=== PATIENT | male | born 1985 | race Caucasian/White ===

== ENCOUNTER 2024-01-18 18:23 | Inpatient (IN) | payer OTHER, SELFPAY ==
--- NOTE | ~2024-01-18 | XR_ITS ---
EXAMINATION: XR chest 2V CLINICAL INFORMATION: cough, SOB COMPARISON: None. TECHNIQUE: 2 views of the chest FINDINGS: Right lung base hazy opacity may reflect aspiration, atelectasis, or infection. No pneumothorax. No pleural effusion. Unchanged cardiomediastinal silhouette. XR/XR chest 2V IMPRESSION: Right lung base hazy opacity may reflect aspiration, atelectasis, or infection. Electronically signed by: Mavis Basurto MD 01/18/2024 08:07 PM EDT
[2024-01-18 18:46] VITALS: BP 109/50; PULSE 112; RESP 20; TEMP 37.9; O2SAT 93; BMI 37.6
[2024-01-18] MEDS: Acetaminophen 325 MG TABLET 650 MG PO (19:11)
[2024-01-18 19:59] LABS: Hematocrit 40.6 % (42.0-52.0); Hemoglobin 14.2 g/dl (14.0-18.0); Mean Corpuscular Hemoglobin 29.7 pg (27.0-33.0); Mean Corpuscular Volume 84.9 fL (80.0-98.0); Mean Platelet Volume 10.3 fL (9.4-12.4); Platelet Count 306 X10*3/uL (160-400); Red Blood Count 4.78 X10*6/uL (4.60-5.80); Red Cell Distribution Width 12.4 % (11.0-16.0)
[2024-01-18 20:07] LABS: WBC ABN SCTR FOR CBC 1
[2024-01-18 20:08] LABS: White Blood Count 20.2 X10*3/uL (4.8-10.8)
[2024-01-18 20:13] LABS: Alanine Aminotransferase 30 U/L (0-40); Albumin Level 3.6 g/dL (3.5-5.0); Alkaline Phosphatase 71 U/L (39-117); Anion Gap 17 (12-20); Aspartate Amino Transferase 80 U/L (5-37); Bilirubin Direct 0.4 mg/dL (0.0-0.5); Bilirubin Total 0.8 mg/dL (0.0-1.0); Blood Urea Nitrogen 17 mg/dL (9-16); Calcium 9.7 mg/dL (8.4-10.2); Carbon Dioxide 18 mmol/L (22-29); Chloride 100 mmol/L (96-108); Creatinine Clr Calc Pharmacy 80.8; Estimated Glomerular Filt Rate 55; Glucose Random 118 mg/dL (60-115); Lipase 19 U/L (8-78); Potassium 3.8 mmol/L (3.3-5.1); Sodium 131 mmol/L (135-145); Total Protein 7.5 g/dL (6.5-8.0)
--- NOTE | 2024-01-18 20:17 | ED_ITS ---
HPI - General Adult General Chief complaint: Upper Respiratory Symptoms Stated complaint: Fever, coughing Time Seen by Provider: 01/18/24 21:46 Source: patient Mode of arrival: ambulatory Limitations: no limitations History of Present Illness HPI narrative: Patient is a 38-year-old male presents emergency department for evaluation of 5 days with intermittent fever, body aches, productive cough with yellow/green phlegm, pain diffusely throughout the chest during episodes of coughing, intermittent headache without neck pain or neck stiffness, and diffuse upper abdominal pain no nausea or vomiting. Denies any known sick contacts, symptoms, diarrhea or constipation. Related Data Allergies Allergy/AdvReac Type Severity Reaction Status Date / Time No Known Allergies Allergy Verified 01/18/24 18:49 [facility] Social History Social History Household Members: Family Housing: House Alcohol intake: current Alcohol intake frequency: holidays/special occasions only Alcohol type: beer Patient Tobacco Use Status: Current everyday Tobacco user Tobacco use type: Cigarette Cigarettes Per Day: 12 Smoked in Last 30 Days: Yes Patient Interested in Nicotine Replacement: Yes Use of substances other than those prescribed or required for medical reasons: No Have you been hit, kicked, punched, or otherwise hurt by someone within the past year? If so, by whom?: No Do you feel safe in your current relationship?: Yes Is there a partner from a previous relationship who is making you feel unsafe now?: No Are you made to feel afraid or neglected: No Advance Directives: No Advance Directives Information Provided: No Do you have a plan to hurt others: No Plan Recently lost weight without trying: No How much weight loss: Not applicable Eating poorly because of decreased appetite: No Nutrition screen score: 0 Nutrition Risks: Anorexia Poor oral hygiene: No Physical Exam ED Vital Signs: Vital Signs - 24 hr 01/18/24 18:46 01/18/24 21:50 01/18/24 23:37 Temperature 100.2 F 99.9 F Pulse Rate 112 H 113 H Respiratory Rate 20 16 Blood Pressure 109/50 L 141/61 H Pulse Oximetry 93 95 Oxygen Delivery Method Room Air Nasal Cannula Oxygen Flow Rate 2 01/18/24 23:38 Temperature Pulse Rate Respiratory Rate Blood Pressure Pulse Oximetry 95 Oxygen Delivery Method Nasal Cannula Oxygen Flow Rate BMI result Body Mass Index 37.6 Appearance: Alert.?Oriented to person, place and time. No acute distress.?Normal affect. Eyes: Pupils equal, round and reactive to light.? ENT: Pharynx normal.?? Neck: Normal inspection.? Neck supple.??No cervical adenopathy CVS: Heart sounds normal. Tachycardia.? Pulses normal.?? Respiratory: Dyspneic on exertion Lung sounds with expiratory wheezing bilaterally, rhonchi in the right lower lobe Abdomen: Soft and non-tender. Normoactive bowel sounds. ? Skin: Skin warm and dry.? Normal skin color.? Extremities: No lower extremity edema.? No calf ttp? Neuro: Moves all extremities spontaneously. Sensation intact bilaterally. No focal neuro deficits. Ambulates with normal steady gait. Course Course Course Narrative: RME: 38-year-old male presents to ED for coughing, body aches, fever and chest wall pain. Lungs are clear. Patient denies any rash, diarrhea, urinary symptoms, recent travel. Chest x-ray shows pneumonia. White count 75336. Heart rate 112. Lactate 1.0. Charge nurse called to bring patient back to the ED immediatley. Reevaluation(s) Reevaluation #1: Noted to be hypoxic on room air O2 saturation 88% with good pleath, placed on 2 L via nasal cannula, will add IV Solu-Medrol. Time: 22:15 Medications Administered Generic Name Dose Route Start Last Admin Trade Name Freq PRN Reason Stop Dose Admin Enoxaparin Sodium 40 mg 01/19/24 09:00 01/19/24 09:14 Enoxaparin Sodium 40 Mg/0.4 Ml Syringe SUBCUT 40 mg Q24H GIDEON Administration Guaifenesin/Dextromethorphan 10 ml 01/19/24 00:27 01/19/24 01:23 Guaifenesin Dm 200/20/10 Ml 10 Ml Syrup PO 10 ml Q4H PRN Administration Cough Levalbuterol HCl 1.25 mg 01/19/24 08:00 01/19/24 08:06 Levalbuterol Hcl 1.25 Mg/3 Ml Vial.Neb INHALE 1.25 mg RQ4H WHILE AWAKE GIDEON Administration Oseltamivir Phosphate 75 mg 01/19/24 00:30 01/19/24 09:14 Oseltamivir Phosphate 75 Mg Capsule PO 11/04/24 09:01 75 mg BID GIDEON Administration Sodium Chloride 3 ml 01/19/24 08:00 01/19/24 09:15 0.9 % Sodium Chloride Flush 3 Ml Syringe IVFLUSH 3 ml QSHIFT GIDEON Administration Discontinued Medications Generic Name Dose Route Start Last Admin Trade Name Bandar PRN Reason Stop Dose Admin Acetaminophen 650 mg 01/18/24 18:54 01/18/24 19:11 Acetaminophen 325 Mg Tablet PO 01/18/24 18:55 650 mg ONCE ONE Administration Azithromycin 500 mg 01/18/24 20:33 01/18/24 22:17 Azithromycin 500 Mg Tablet PO 01/18/24 20:34 500 mg ONCE ONE Administration Ceftriaxone Sodium 1 gm 01/18/24 20:33 01/18/24 22:17 Ceftriaxone Sodium 1 Gm Vial IVPUSH 01/18/24 20:34 1 gm ONCE ONE Administration Sodium Chloride 1,000 mls @ 999 mls/hr 01/18/24 20:33 01/18/24 23:51 Ns IV 01/18/24 21:33 Infused .Q1H1M STA Infusion Methylprednisolone Sodium Succinate 80 mg 01/18/24 22:16 01/18/24 23:26 Methylprednisolone Sod Succ 125 Mg/2 Ml Vial IVPUSH 01/18/24 22:17 80 mg ONCE ONE Administration Medical Decision Making Medical Decision Making MDM Narrative: Patient is a 38 year old male with past medical history of cardiac valve repair as a young child uncertain which, not on any anticoagulants, presents emergency department for evaluation of upper respiratory symptoms I assumed care of patient at 21:50 - nursing staff made me aware that they received call from lab regarding critical hematology results; bands 17%. Noted to have leukocytosis 20,200, no anemia or thrombocytopenia. Hyponatremic at 131, BUN creatinine 17/1.43, no baseline comparison available for review. No lactic acidosis; 1.0. LFTs are overall unremarkable aside from mildly elevated AST at 80. Influenza a is positive, influenza B/RSV/COVID-19 is negative. CXR revealing an opacity in the right lower lobe concerning for pneumonia in the setting of presenting symptoms. Concern for superimposed bacterial pneumonia in the setting of influenza; patient received Rocephin 1 g IV, azithromycin, and 1 L normal saline IV. He is tachycardic in the 110's, has had O2 saturation at 92-94% on room air, is notably dyspneic with minimal exertion. Anticipate hospital admission Differential Diagnosis Differential Diagnoses: The differential diagnosis associated with the presentation includes (See narrative above) Admission/Observation Consideration of admission/observation: Escalation of care including admission/observation considered Consult Healthcare Provider Management of the patient was discussed with: Hospitalist Dr. Rajinder Carter Lab Data MDM Lab Attestation statement: I reviewed the patient's lab results. (See narrative above) 01/19/24 06:14 01/19/24 06:14 Labs: Lab Results 01/18/24 Range/Units 19:52 WBC 20.2 H (4.8-10.8) X10*3/uL RBC 4.78 (4.60-5.80) X10*6/uL Hgb 14.2 (14.0-18.0) g/dl Hct 40.6 L (42.0-52.0) % MCV 84.9 (80.0-98.0) fL MCH 29.7 (27.0-33.0) pg MCHC 35.0 (31.0-36.0) g/dl RDW 12.4 (11.0-16.0) % Plt Count 306 (160-400) X10*3/uL MPV 10.3 (9.4-12.4) fL Immature Gran % (Auto) Cancelled Neut % (Auto) Cancelled Lymph % (Auto) Cancelled [place] % (Auto) Cancelled Eos % (Auto) Cancelled Baso % (Auto) Cancelled Lymph # (Auto) Cancelled [place] # (Auto) Cancelled Eos # (Auto) Cancelled Baso # (Auto) Cancelled Abs Immat Gran (auto) Cancelled Absolute Neuts (auto) Cancelled Absolute Nucleated RBC 0.000 (0.0-0.012) X10*3/uL Nucleated RBC % (auto) 0.0 (0.0-0.2) /100WBC Neutrophils % (Manual) 60 (45-73) % Band Neutrophils % 17 H (3-5) % Lymphocytes % (Manual) 3 L (20-40) % Atypical Lymphs % (Man) 1 (0-6) % Monocytes % (Manual) 13 H (2-11) % Metamyelocytes % 3 % Myelocytes % 1 % Abs Neuts (Manual) 15.6 H (2.0-8.3) X10*3/uL Lymphocytes # (Manual) 0.6 L (1.2-4.9) X10*3/uL Atyp Lymphs # (Manual) 0.2 x10*3/uL Monocytes # (Manual) 2.6 H (0.1-1.2) X10*3/uL Metamyelocytes # 0.6 X10*3/uL Myelocytes # 0.2 X10*/uL Dohle Bodies PRESENT Platelet Estimate NORMAL (NORMAL) Plt Morphology Comment NORMAL RBC Morphology NOTED [place] Cells 1+ (0-2) /OIF Schistocytes 1+ (0-2) /OIF Sodium 131 L (135-145) mmol/L Potassium 3.8 (3.3-5.1) mmol/L Chloride 100 (96-108) mmol/L Carbon Dioxide 18 L (22-29) mmol/L Anion Gap 17 (12-20) BUN 17 H (9-16) mg/dL Creatinine 1.43 H (0.5-1.4) mg/dL Estim Creat Clear Calc 80.8 Estimated GFR 55 Random Glucose 118 H (60-115) mg/dL Lactic Acid 1.0 (0.5-2.0) mmol/L Calcium 9.7 (8.4-10.2) mg/dL Total Bilirubin 0.8 (0.0-1.0) mg/dL Direct Bilirubin 0.4 (0.0-0.5) mg/dL AST 80 H (5-37) U/L ALT 30 (0-40) U/L Alkaline Phosphatase 71 (39-117) U/L Total Protein 7.5 (6.5-8.0) g/dL Albumin 3.6 (3.5-5.0) g/dL Lipase 19 (8-78) U/L Influenza Type A (PCR) POSITIVE A (Negative) Influenza Type B (PCR) NEGATIVE (Negative) RSV RNA Qual (PCR) NEGATIVE (Negative) SARS-CoV-2 RNA (RT-PCR) NEGATIVE (Negative) Independent Interpretation I performed an independent interpretation of an: Plain X-Ray (Right lower lobe pneumonia) Radiology Impression Discussion of test interpretation with radiology: I have reviewed the radiologist's reading. Radiologist Impression: XR/XR chest 2V IMPRESSION: Right lung base hazy opacity may reflect aspiration, atelectasis, or infection. External Record Review External record reviewed: Outpatient record Critical Care Time Critical Care Time Critical Care Time: Yes Total Critical Care Time: 40 Attestation: I personally attest to this critical care time spent taking care of the patient exclusive of all other billable procedures was approximately 40 minutes including initial evaluation of patient, ordering tests, x-ray interpretation, EKG interpretation, sepsis, medical consultation, documentation, re-evaluation. Discharge Plan Discharge Clinical Impression: Sepsis, Influenza A, Pneumonia, LESLEE (acute kidney injury) Patient Disposition: Admitted As Inpatient Interventions: Admission Worksheet (ED) Last Done: 01/19/24 01:06 Discharge Date/Time: 01/19/24 01:56
[2024-01-18 20:36] LABS: Influenza A PCR POSITIVE (Negative); Influenza B PCR NEGATIVE (Negative); Resp Syncy Virus RNA Qual PCR NEGATIVE (Negative); SARS COV2 PCR INHOUSE NEGATIVE (Negative)
[2024-01-18 21:36] LABS: Band Neutrophils Percent 17 % (3-5); Lymphocytes Absolute Manual 0.6 X10*3/uL (1.2-4.9); Lymphocytes Percent Manual 3 % (20-40); Neutrophils Absolute Manual 15.6 X10*3/uL (2.0-8.3); Neutrophils Percent Manual 60 % (45-73)
[2024-01-18 21:37] LABS: Atypical Lymph Absolute Manual 0.2 x10*3/uL; Atypical Lymphs Percent Manual 1 % (0-6); Metamyelocytes Absolute 0.6 X10*3/uL; Metamyelocytes Percent 3 %; Monocytes Absolute Manual 2.6 X10*3/uL (0.1-1.2); Monocytes Percent Manual 13 % (2-11); Myelocytes Absolute 0.2 X10*/uL; Myelocytes Percent 1 %
[2024-01-18 21:38] LABS: Platelet Estimate NORMAL (NORMAL); Platelet Morphology Comment NORMAL; RBC Morphology NOTED
[2024-01-18 21:39] LABS: Burr Cells 1+ (0-2) /OIF; Dohle Bodies PRESENT; Schistocytes 1+ (0-2) /OIF
[2024-01-18 21:50] VITALS: TEMP 37.7
[2024-01-18] MEDS: Azithromycin 500 MG TABLET PO (22:17)
[2024-01-18] MEDS: cefTRIAXone sodium 1 GM VIAL IVPUSH (22:17)
[2024-01-18] MEDS: 0.9 % Sodium Chloride 1,000 ML 999 ML IV (22:18)
[2024-01-18] MEDS: methylPREDNISolone Sod Succ 125 MG/2 ML VIAL 80 MG IVPUSH (23:26)
[2024-01-18 23:37] VITALS: BP 141/61; PULSE 111; PULSE 113; RESP 16; O2SAT 95
[2024-01-18 23:38] VITALS: O2SAT 95
--- NOTE | 2024-01-18 23:42 | PC.NURSE ---
Patient desat to 88-89% RA, patient placed on O2 at 2 LPM NC with improvement noted, maintaining O2 Sat 94-95% on supplemental O2.
[2024-01-19] VITALS (9 sets, daily range): BP systolic 109–126; BP diastolic 57–68; PULSE 78–108; RESP 18–25; TEMP 36.1–37.6; O2SAT 93–98
--- NOTE | 2024-01-19 00:28 | PM.IMHP ---
History of Present Illness Date of Service: 01/19/24 Attending physician on admission: Vidal Carter Chief Complaint: Cough, SOB Pt is a 38-year-old male with a PMH significant for congenital cardiac valve repair, otherwise healthy not on home meds?who presents to the ED with?fever, myalgias, productive cough, SOB, and MONDRAGON x5 days. Also reports loss of appetite with p.o. intake, feeling tired and fatigued, and chest tightness associated with cough and deep breathing. Has had some nausea but no vomiting, and had 2-3 liquid stools per day since symptom onset. Reports whole family has been sick though his symptoms have not gotten better. Patient has tried Tylenol and Robitussin to little effect. Denies chest pain/pressure. No abdominal pain. Current smoker of 0.75 packs daily. In the ED pt was tachycardic up to 112, hypertensive up to 141/61, satting at 91% on RA, and with low-grade fever of 100.2. Labs were significant for leukocytosis of 20.2, bandemia of 17%, sodium 131, creatinine 1.43, AST 80, and testing positive for influenza type A. CXR showed right lung base hazy opacity that may reflect aspiration, atelectasis, or infection. Pt was treated with acetaminophen, IVF, ceftriaxone, and azithromycin. Pt will be admitted to the hospital for treatment and further evaluation of LESLEE and acute respiratory distress in the setting of influenza infection with superimposed pneumonia with sepsis. Review of Systems Review of Systems: Yes all other systems are reviewed and are negative [facility] Social History Alcohol intake: current Alcohol intake frequency: holidays/special occasions only Alcohol type: beer Patient Tobacco Use Status: Current everyday Tobacco user Meds Allergies Allergy/AdvReac Type Severity Reaction Status Date / Time No Known Allergies Allergy Verified 01/18/24 18:49 Active Medications: Current Medications Acetaminophen (Acetaminophen 325 Mg Tablet) 650 mg PO Q6H PRN PRN Reason: Pain, Mild (Pain Scale 1-3), fever or headache Albuterol/Ipratropium (Albuterol/Iprat 2.5/0.5mg 3 Ml Ampul.Neb) 3 ml INHALE RQ4H WHILE AWAKE GIDEON Calcium Carbonate (Calcium Carbonate 750 Mg Tab.Chew) 750 mg PO Q4H PRN PRN Reason: Heartburn Enoxaparin Sodium (Enoxaparin Sodium 40 Mg/0.4 Ml Syringe) 40 mg SUBCUT Q24H [facility] Guaifenesin/Dextromethorphan (Guaifenesin Dm 200/20/10 Ml 10 Ml Syrup) 10 ml PO Q4H PRN PRN Reason: Cough Magnesium Hydroxide (Milk Of Magnesia 30 Ml Oral.Susp) 30 ml PO DAILY PRN PRN Reason: Constipation Melatonin (Melatonin 3 Mg Tablet) 6 mg PO BEDTIME PRN PRN Reason: Insomnia Ondansetron HCl (Ondansetron Hcl 4 Mg/2 Ml Vial) 4 mg IVPUSH Q8H PRN PRN Reason: Nausea and Vomiting Oseltamivir Phosphate (Oseltamivir Phosphate 75 Mg Capsule) 75 mg PO Q12H [facility] Stop: 01/23/24 12:31 Sodium Chloride (0.9 % Sodium Chloride Flush 3 Ml Syringe) 3 ml IVFLUSH QSHIFT [facility] Physical Exam Vital Signs and Narrative: Vital Signs: Last Vital Signs Temp 99.9 F 01/18/24 21:50 Pulse 113 H 01/18/24 23:37 Resp 16 01/18/24 23:37 BP 141/61 H 01/18/24 23:37 Pulse Ox 95 01/18/24 23:38 O2 Del Method Nasal Cannula 01/18/24 23:38 O2 Flow Rate 2 01/18/24 23:37 Oxygen Flow Rate 2 01/18/24 23:38 BMI result Body Mass Index 37.6 General: AOx3, looks uncomfortable. Resp: Diffuse bilateral wheezing, constant wet sounding cough, shallow breathing CVS: S1, S2, regular rate, tachycardic GI: +BS, no distention, mild left-sided tenderness Skin: Warm, dry Neuro: Cranial nerves II-XII grossly intact bilaterally. Motor grossly intact bilaterally Extremities: No edema Psych: Appropriate affect Results Labs 01/18/24 19:52 01/18/24 19:52 Labs: Laboratory Results - last 24 hr 01/18/24 19:52 MCV 84.9 MCH 29.7 MCHC 35.0 RDW 12.4 Plt Count 306 MPV 10.3 Immature Gran % (Auto) Cancelled Neut % (Auto) Cancelled Lymph % (Auto) Cancelled [place] % (Auto) Cancelled Eos % (Auto) Cancelled Baso % (Auto) Cancelled Lymph # (Auto) Cancelled [place] # (Auto) Cancelled Eos # (Auto) Cancelled Baso # (Auto) Cancelled Abs Immat Gran (auto) Cancelled Absolute Neuts (auto) Cancelled Absolute Nucleated RBC 0.000 Nucleated RBC % (auto) 0.0 Neutrophils % (Manual) 60 Band Neutrophils % 17 H Lymphocytes % (Manual) 3 L Atypical Lymphs % (Man) 1 Monocytes % (Manual) 13 H Metamyelocytes % 3 Myelocytes % 1 Abs Neuts (Manual) 15.6 H Lymphocytes # (Manual) 0.6 L Atyp Lymphs # (Manual) 0.2 Monocytes # (Manual) 2.6 H Metamyelocytes # 0.6 Myelocytes # 0.2 Dohle Bodies PRESENT Platelet Estimate NORMAL Plt Morphology Comment NORMAL RBC Morphology NOTED [place] Cells 1+ (0-2) Schistocytes 1+ (0-2) Anion Gap 17 Estim Creat Clear Calc 80.8 Estimated GFR 55 Random Glucose 118 H Lactic Acid 1.0 Calcium 9.7 Total Bilirubin 0.8 Direct Bilirubin 0.4 AST 80 H ALT 30 Alkaline Phosphatase 71 Total Protein 7.5 Albumin 3.6 Lipase 19 Influenza Type A (PCR) POSITIVE A Influenza Type B (PCR) NEGATIVE RSV RNA Qual (PCR) NEGATIVE SARS-CoV-2 RNA (RT-PCR) NEGATIVE Imaging Radiologist's Impressions: Impressions Chest X-Ray 01/18/24 18:55 IMPRESSION: Right lung base hazy opacity may reflect aspiration, atelectasis, or infection. Electronically signed by: Mavis Basurto MD 01/18/2024 08:07 PM EDT Assessment and Plan (1) Influenza A: Status: Acute (2) Pneumonia: Status: Acute Plan Pt is a 38-year-old male with a PMH significant for congenital cardiac valve repair, otherwise healthy not on home meds?who presents to the ED with?fever, myalgias, productive cough, SOB, and MONDRAGON x5 days. Pt will be admitted to the hospital for treatment and further evaluation of LESLEE and acute respiratory distress in the setting of influenza infection with superimposed pneumonia with sepsis. Acute respiratory distress in the setting of influenza infection Tested positive for influenza type a Patient with wheezing bilaterally upon auscultation Not hypoxic, but satting at 91% on RA Will treat with Tamiflu, started 01/19/2024 Xopenex Q 4 Titrate supplemental O2 >92, wean as tolerated Patient received IV steroids in the ED, Will hold on additional steroids for now Acute pneumonia with sepsis In the setting of above CXR showing right lung base hazy opacity Patient with constant productive cough, SOB, MONDRAGON, fatigue x5 days Meets sepsis criteria: Tachycardia, leukocytosis with bandemia; lactic acid WNL at 1.0 Patient given IVF and started on broad-spectrum antibiotics in the ED Will treat with ceftriaxone and azithromycin, started 01/18/2024 LESLEE Creatinine 1.43 at time of presentation, baseline unknown Likely secondary to reduced p.o. intake and diarrhea x5 days in the setting of flu with superimposed pneumonia Patient received IVF in the ED Follow BMP Hyponatremia Sodium 131 at time of presentation Likely secondary to reduced p.o. intake and diarrhea Patient received IVF in the ED Trend sodium Full Code Attending:?Dr. Calvillo DVT Prophylaxis: Lovenox Pt will require a hospitalization of at least two nights for treatment of?LESLEE and acute respiratory distress in the setting of influenza infection with superimposed pneumonia with sepsis that will require administration of IV antibiotics, breathing treatments, supplemental oxygen, and the close monitoring of labs and respiratory status. Quality Stroke Does the patient have a stroke diagnosis?: No VTE Prior VTE?: No VTE Risk Level:: Medical - moderate - high VTE Device Contraindication: Treatment Not Indicated VTE Drug Contraindication: N/A - Med Ordered
[2024-01-19] MEDS: Oseltamivir Phosphate 75 MG CAPSULE PO ×3 (01:23→20:24)
[2024-01-19] MEDS: guaiFENesin DM 200/20/10 ML 10 ML SYRUP PO (01:23)
[2024-01-19 06:59] LABS: Anion Gap 18 (12-20); Blood Urea Nitrogen 18 mg/dL (9-16); Calcium 9.7 mg/dL (8.4-10.2); Carbon Dioxide 20 mmol/L (22-29); Chloride 103 mmol/L (96-108); Creatinine Clr Calc Pharmacy 95.5; Estimated Glomerular Filt Rate > 60; Glucose Random 131 mg/dL (60-115); Potassium 4.4 mmol/L (3.3-5.1); Sodium 137 mmol/L (135-145)
[2024-01-19 07:08] LABS: Hematocrit 39.9 % (42.0-52.0); Hemoglobin 13.7 g/dl (14.0-18.0); Mean Corpuscular HGB Conc 34.3 g/dl (31.0-36.0); Mean Corpuscular Hemoglobin 29.7 pg (27.0-33.0); Mean Corpuscular Volume 86.4 fL (80.0-98.0); Platelet Count 323 X10*3/uL (160-400); Red Blood Count 4.62 X10*6/uL (4.60-5.80); Red Cell Distribution Width 12.6 % (11.0-16.0); White Blood Count 18.9 X10*3/uL (4.8-10.8)
[2024-01-19] MEDS: levalbuterol HCL 1.25 MG/3 ML VIAL.NEB INHALE ×4 (08:06→18:16)
[2024-01-19] MEDS: Enoxaparin Sodium 40 MG/0.4 ML SYRINGE SUBCUT (09:14)
[2024-01-19] MEDS: 0.9 % Sodium Chloride Flush 3 ML SYRINGE IVFLUSH ×3 (09:15→20:26)
--- NOTE | 2024-01-19 09:27 | MHC.CM.PN ---
CM met with Patient at bedside. 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 Home/self care is the goal and CM has initiated and will follow for dc planning. Patient explains that his insurance is new and now that he has it, he will be working to get a PCP.Patient's car is here for transport to home.
--- NOTE | 2024-01-19 10:28 | PHA.MEDREC ---
Addendum entered by Savanah Acosta RPh 01/19/24 10:37: Camila REVIEWED Original Note: Pharmacy Consult ? Medication Reconciliation Pharmacy has completed the medication reconciliation. Patient confirmed he is not taking any medications.
--- NOTE | 2024-01-19 12:48 | HO.PM.IMPN ---
Subjective Subjective Date of Service: 01/19/24 Interval History: pneumonia influenza A Review of Systems sob and cough seems somewhat improving Physical Exam Vital Signs: Vital Signs: Last Vital Signs Temp 98.6 F 01/19/24 07:00 Pulse 89 01/19/24 11:01 Resp 19 01/19/24 11:01 BP 109/68 01/19/24 07:00 Pulse Ox 95 01/19/24 07:00 O2 Del Method Nasal Cannula 01/19/24 07:00 O2 Flow Rate 2 01/19/24 07:00 Oxygen Flow Rate 2 01/18/24 23:38 BMI result Body Mass Index 37.6 General: AOx3, Resp: air entry somewhat diminshed , Diffuse bilateral wheezing, constant wet sounding cough, shallow breathing CVS: S1, S2, regular rate, tachycardic GI: +BS, no distention, mild left-sided tenderness Skin: Warm, dry Neuro: Cranial nerves II-XII grossly intact bilaterally. Motor grossly intact bilaterally Extremities: No edema Psych: Appropriate affect Objective Data Active Medications Acetaminophen (Acetaminophen 325 Mg Tablet) 650 mg PO Q6H PRN PRN Reason: Pain, Mild (Pain Scale 1-3), fever or headache Calcium Carbonate (Calcium Carbonate 750 Mg Tab.Chew) 750 mg PO Q4H PRN PRN Reason: Heartburn Ceftriaxone Sodium (Ceftriaxone Sodium 1 Gm Vial) 1 gm IVPUSH Q24H GIDEON Enoxaparin Sodium (Enoxaparin Sodium 40 Mg/0.4 Ml Syringe) 40 mg SUBCUT Q24H [facility] Last Admin: 01/19/24 09:14 Dose: 40 mg Documented By: AMY Guaifenesin/Dextromethorphan (Guaifenesin Dm 200/20/10 Ml 10 Ml Syrup) 10 ml PO Q4H PRN PRN Reason: Cough Last Admin: 01/19/24 01:23 Dose: 10 ml Documented By: SUN Azithromycin 500 mg/ Sodium (Chloride) 250 mls @ 125 mls/hr IV Q24H [facility] Levalbuterol HCl (Levalbuterol Hcl 1.25 Mg/3 Ml Vial.Neb) 1.25 mg INHALE RQ4H WHILE AWAKE [facility] Last Admin: 01/19/24 11:01 Dose: 1.25 mg Documented By: ANTONIA Magnesium Hydroxide (Milk Of Magnesia 30 Ml Oral.Susp) 30 ml PO DAILY PRN PRN Reason: Constipation Melatonin (Melatonin 3 Mg Tablet) 6 mg PO BEDTIME PRN PRN Reason: Insomnia Ondansetron HCl (Ondansetron Hcl 4 Mg/2 Ml Vial) 4 mg IVPUSH Q8H PRN PRN Reason: Nausea and Vomiting Oseltamivir Phosphate (Oseltamivir Phosphate 75 Mg Capsule) 75 mg PO BID [facility] Stop: 01/23/24 09:01 Last Admin: 01/19/24 09:14 Dose: 75 mg Documented By: AMY Sodium Chloride (0.9 % Sodium Chloride Flush 3 Ml Syringe) 3 ml IVFLUSH QSHIFT [facility] Last Admin: 01/19/24 09:15 Dose: 3 ml Documented By: AMY Labs 01/19/24 06:14 01/19/24 06:14 Labs: Laboratory Results - last 24 hr 01/18/24 01/19/24 19:52 06:14 MCV 84.9 86.4 MCH 29.7 29.7 MCHC 35.0 34.3 RDW 12.4 12.6 Plt Count 306 323 MPV 10.3 11.0 Immature Gran % (Auto) Cancelled Neut % (Auto) Cancelled Lymph % (Auto) Cancelled [place] % (Auto) Cancelled Eos % (Auto) Cancelled Baso % (Auto) Cancelled Lymph # (Auto) Cancelled [place] # (Auto) Cancelled Eos # (Auto) Cancelled Baso # (Auto) Cancelled Abs Immat Gran (auto) Cancelled Absolute Neuts (auto) Cancelled Absolute Nucleated RBC 0.000 0.000 Nucleated RBC % (auto) 0.0 0.0 Neutrophils % (Manual) 60 Band Neutrophils % 17 H Lymphocytes % (Manual) 3 L Atypical Lymphs % (Man) 1 Monocytes % (Manual) 13 H Metamyelocytes % 3 Myelocytes % 1 Abs Neuts (Manual) 15.6 H Lymphocytes # (Manual) 0.6 L Atyp Lymphs # (Manual) 0.2 Monocytes # (Manual) 2.6 H Metamyelocytes # 0.6 Myelocytes # 0.2 Dohle Bodies PRESENT Platelet Estimate NORMAL Plt Morphology Comment NORMAL RBC Morphology NOTED [place] Cells 1+ (0-2) Schistocytes 1+ (0-2) Anion Gap 17 18 Estim Creat Clear Calc 80.8 95.5 Estimated GFR 55 > 60 Random Glucose 118 H 131 H Lactic Acid 1.0 Calcium 9.7 9.7 Total Bilirubin 0.8 Direct Bilirubin 0.4 AST 80 H ALT 30 Alkaline Phosphatase 71 Total Protein 7.5 Albumin 3.6 Lipase 19 Influenza Type A (PCR) POSITIVE A Influenza Type B (PCR) NEGATIVE RSV RNA Qual (PCR) NEGATIVE SARS-CoV-2 RNA (RT-PCR) NEGATIVE Quality Stroke Does the patient have a stroke diagnosis?: No VTE Prior VTE?: No VTE Risk Level:: Medical - moderate - high VTE Device Contraindication: Treatment Not Indicated VTE Drug Contraindication: N/A - Med Ordered
--- NOTE | 2024-01-19 13:06 | PM.EVENT ---
Event Note Date of Service: 01/19/24 Event Note: This patient is seen and examined by hospitalist service this morning sob and cough seems somewhat improving Physical exam-unchanged and assessment and plan coordinated in h&P note, Agree with the plan in addition: pneumonia with sepsis and influenza A continue iv antibiotics and tamiflu, continue to moniter respiratory status. Time Spent With Patient Time: Total time managing care of this patient today ____ minutes.
[2024-01-19] MEDS: cefTRIAXone sodium 1 GM VIAL IVPUSH (20:25)
[2024-01-19] MEDS: Azithromycin 500 MG in 0.9 % Sodium Chloride 250 ML 125 MG IV (20:35)
[2024-01-20] VITALS (10 sets, daily range): BP systolic 101–112; BP diastolic 56–60; PULSE 61–86; RESP 16–18; TEMP 35.9–36.6; O2SAT 93–99
[2024-01-20 05:50] LABS: Hematocrit 37.5 % (42.0-52.0); Hemoglobin 12.8 g/dl (14.0-18.0); Mean Corpuscular HGB Conc 34.1 g/dl (31.0-36.0); Mean Corpuscular Hemoglobin 29.8 pg (27.0-33.0); Mean Corpuscular Volume 87.2 fL (80.0-98.0); Platelet Count 354 X10*3/uL (160-400); Red Cell Distribution Width 12.6 % (11.0-16.0); White Blood Count 22.5 X10*3/uL (4.8-10.8)
[2024-01-20 06:04] LABS: Anion Gap 16 (12-20); Blood Urea Nitrogen 26 mg/dL (9-16); Calcium 9.2 mg/dL (8.4-10.2); Carbon Dioxide 20 mmol/L (22-29); Chloride 106 mmol/L (96-108); Creatinine Clr Calc Pharmacy 115.5; Estimated Glomerular Filt Rate > 60; Glucose Random 116 mg/dL (60-115); Sodium 138 mmol/L (135-145)
[2024-01-20] MEDS: levalbuterol HCL 1.25 MG/3 ML VIAL.NEB INHALE ×4 (07:34→19:46)
[2024-01-20] MEDS: guaiFENesin DM 200/20/10 ML 10 ML SYRUP PO ×3 (09:45→21:49)
[2024-01-20] MEDS: Enoxaparin Sodium 40 MG/0.4 ML SYRINGE SUBCUT (09:45)
[2024-01-20] MEDS: 0.9 % Sodium Chloride Flush 3 ML SYRINGE IVFLUSH ×2 (09:46→15:38)
[2024-01-20] MEDS: Oseltamivir Phosphate 75 MG CAPSULE PO ×2 (09:47→21:49)
--- NOTE | 2024-01-20 13:07 | HO.PM.IMPN ---
Subjective Subjective Date of Service: 01/20/24 Interval History: pneumonia/flu Review of Systems sob with minimal excersion leucocytosis trending up no fevers Physical Exam Vital Signs: Vital Signs: Last Vital Signs Temp 97.4 F 01/20/24 07:47 Pulse 77 01/20/24 11:49 Resp 16 01/20/24 11:49 BP 101/56 L 01/20/24 07:47 Pulse Ox 97 01/20/24 07:47 O2 Del Method Nasal Cannula 01/20/24 07:47 O2 Flow Rate 2 01/20/24 07:47 Oxygen Flow Rate 2 01/18/24 23:38 BMI result Body Mass Index 37.6 General: AOx3, sob similar Resp: Diffuse bilateral wheezing, constant wet sounding cough, shallow breathing CVS: S1, S2, regular rate, tachycardic GI: +BS, no distention, mild left-sided tenderness Skin: Warm, dry Neuro: nonfocal. Extremities: No edema Objective Data Active Medications Acetaminophen (Acetaminophen 325 Mg Tablet) 650 mg PO Q6H PRN PRN Reason: Pain, Mild (Pain Scale 1-3), fever or headache Calcium Carbonate (Calcium Carbonate 750 Mg Tab.Chew) 750 mg PO Q4H PRN PRN Reason: Heartburn Ceftriaxone Sodium (Ceftriaxone Sodium 1 Gm Vial) 1 gm IVPUSH Q24H [facility] Last Admin: 01/19/24 20:25 Dose: 1 gm Documented By: BRITTNY Enoxaparin Sodium (Enoxaparin Sodium 40 Mg/0.4 Ml Syringe) 40 mg SUBCUT Q24H [facility] Last Admin: 01/20/24 09:45 Dose: 40 mg Documented By: JESSE Guaifenesin/Dextromethorphan (Guaifenesin Dm 200/20/10 Ml 10 Ml Syrup) 10 ml PO Q4H PRN PRN Reason: Cough Last Admin: 01/20/24 09:45 Dose: 10 ml Documented By: JESSE Azithromycin 500 mg/ Sodium (Chloride) 250 mls @ 125 mls/hr IV Q24H [facility] Last Infusion: 01/19/24 22:45 Dose: Infused Documented By: BRITTNY Levalbuterol HCl (Levalbuterol Hcl 1.25 Mg/3 Ml Vial.Neb) 1.25 mg INHALE RQ4H WHILE AWAKE [facility] Last Admin: 01/20/24 11:46 Dose: 1.25 mg Documented By: SULMA Magnesium Hydroxide (Milk Of Magnesia 30 Ml Oral.Susp) 30 ml PO DAILY PRN PRN Reason: Constipation Melatonin (Melatonin 3 Mg Tablet) 6 mg PO BEDTIME PRN PRN Reason: Insomnia Ondansetron HCl (Ondansetron Hcl 4 Mg/2 Ml Vial) 4 mg IVPUSH Q8H PRN PRN Reason: Nausea and Vomiting Oseltamivir Phosphate (Oseltamivir Phosphate 75 Mg Capsule) 75 mg PO BID [facility] Stop: 01/23/24 09:01 Last Admin: 01/20/24 09:47 Dose: 75 mg Documented By: JESSE Sodium Chloride (0.9 % Sodium Chloride Flush 3 Ml Syringe) 3 ml IVFLUSH QSHIFT [facility] Last Admin: 01/20/24 09:46 Dose: 3 ml Documented By: JESSE Labs 01/20/24 05:18 01/20/24 05:18 Labs: Laboratory Results - last 24 hr 01/20/24 05:18 MCV 87.2 MCH 29.8 MCHC 34.1 RDW 12.6 Plt Count 354 MPV 11.0 Absolute Nucleated RBC 0.000 Nucleated RBC % (auto) 0.0 Anion Gap 16 Estim Creat Clear Calc 115.5 Estimated GFR > 60 Random Glucose 116 H Calcium 9.2 Microbiology Microbiology Results: Microbiology 01/18/24 21:41 Blood Culture - Preliminary Blood - Venous No growth after 24 hours. 01/18/24 19:52 Blood Culture - Preliminary Blood - Venous No growth after 24 hours. Assessment and Plan (1) LESLEE (acute kidney injury): Status: Acute (2) Sepsis: Status: Acute (3) Pneumonia: Status: Acute (4) Influenza A: Status: Acute Assessment and Plan: 38-year-old male with a PMH significant for congenital cardiac valve repair, otherwise healthy not on home meds?who presents to the ED with?fever, myalgias, productive cough, SOB, and MONDRAGON x5 days. Pt will be admitted to the hospital for treatment and further evaluation of LESLEE and acute respiratory distress in the setting of influenza infection with superimposed pneumonia with sepsis. Acute respiratory distress in the setting of influenza infection/Acute pneumonia with sepsis Tested positive for influenza type a sob with excersion leuccocytosis trending up no fevers follow cultures plan: feels somewhat improving continue with Tamiflu, ceftriaxone,azithromycin started 01/19/2024,Xopenex Q 4 Titrate supplemental O2 >92, wean as tolerated Patient received IV steroids in the ED, Will hold on additional steroids for now LESLEE improved with hydration. Follow BMP Hyponatremia Likely secondary to reduced p.o. intake and diarrhea imrpoved with received IVF. DVT Prophylaxis: Lovenox ongoing need for hospitalization for treatment of?LESLEE and acute respiratory distress in the setting of influenza infection with superimposed pneumonia with sepsis that will require administration of IV antibiotics, breathing treatments, supplemental oxygen, and the close monitoring of labs and respiratory status. Quality Stroke Does the patient have a stroke diagnosis?: No VTE Prior VTE?: No VTE Risk Level:: Medical - moderate - high VTE Device Contraindication: Treatment Not Indicated VTE Drug Contraindication: N/A - Med Ordered
--- NOTE | 2024-01-20 14:55 | MHC.CM.PN ---
PER MD ROUNDS, PT NOT MEDICALLY CLEARED TO DC DCP REMAINS HOME WITH NO SERVICES
[2024-01-20] MEDS: cefTRIAXone sodium 1 GM VIAL IVPUSH (21:49)
[2024-01-20] MEDS: Azithromycin 500 MG in 0.9 % Sodium Chloride 250 ML 125 MG IV (21:55)
[2024-01-21] MEDS: 0.9 % Sodium Chloride Flush 3 ML SYRINGE IVFLUSH ×2 (00:11→08:40)
[2024-01-21 03:37] VITALS: BP 106/56; PULSE 60; RESP 16; TEMP 36.2; O2SAT 95
[2024-01-21 07:09] LABS: Anion Gap 14 (12-20); Blood Urea Nitrogen 20 mg/dL (9-16); Calcium 9.9 mg/dL (8.4-10.2); Carbon Dioxide 26 mmol/L (22-29); Chloride 106 mmol/L (96-108); Creatinine Clr Calc Pharmacy 120.3; Estimated Glomerular Filt Rate > 60; Glucose Random 94 mg/dL (60-115); Sodium 142 mmol/L (135-145)
[2024-01-21 07:35] VITALS: BP 108/54; PULSE 59; RESP 16; TEMP 36.4; O2SAT 96
[2024-01-21] MEDS: levalbuterol HCL 1.25 MG/3 ML VIAL.NEB INHALE ×2 (07:51→11:09)
[2024-01-21 07:52] VITALS: PULSE 59; RESP 16; O2SAT 94
[2024-01-21 08:09] LABS: Hemoglobin 13.1 g/dl (14.0-18.0); Mean Corpuscular HGB Conc 33.6 g/dl (31.0-36.0); Mean Corpuscular Hemoglobin 29.3 pg (27.0-33.0); Mean Corpuscular Volume 87.2 fL (80.0-98.0); Mean Platelet Volume 10.3 fL (9.4-12.4); Platelet Count 453 X10*3/uL (160-400); Red Blood Count 4.47 X10*6/uL (4.60-5.80); Red Cell Distribution Width 12.7 % (11.0-16.0); White Blood Count 10.1 X10*3/uL (4.8-10.8)
[2024-01-21] MEDS: guaiFENesin DM 200/20/10 ML 10 ML SYRUP PO (08:40)
[2024-01-21] MEDS: Oseltamivir Phosphate 75 MG CAPSULE PO (08:40)
[2024-01-21 08:53] LABS: Folate 7.2 ng/mL (> or = 4.0); Vitamin B12 1517 pg/mL (200-900)
--- NOTE | 2024-01-21 10:21 | PM.DS ---
DS: Providers Provider Date of Service: 01/21/24 Date of admission: 01/19/24 00:23 Date of discharge: 01/21/24 Primary care physician: Abdirahman Physician Attending physician on discharge: Stephen Hodges Discharging clinician: Stephen Hodges DS: Diagnosis Discharge Diagnosis (1) LESLEE (acute kidney injury): Status: Acute (2) Sepsis: Status: Acute (3) Pneumonia: Status: Acute (4) Influenza A: Status: Acute DS: Summary Hospital Course Hospital Course: hpi:38-year-old male with a PMH significant for congenital cardiac valve repair, otherwise healthy not on home meds?who presents to the ED with?fever, myalgias, productive cough, SOB, and MONDRAGON x5 days. Also reports loss of appetite with p.o. intake, feeling tired and fatigued, and chest tightness associated with cough and deep breathing. Has had some nausea but no vomiting, and had 2-3 liquid stools per day since symptom onset. Reports whole family has been sick though his symptoms have not gotten better. Patient has tried Tylenol and Robitussin to little effect. Denies chest pain/pressure. No abdominal pain. Current smoker of 0.75 packs daily. In the ED pt was tachycardic up to 112, hypertensive up to 141/61, satting at 91% on RA, and with low-grade fever of 100.2. Labs were significant for leukocytosis of 20.2, bandemia of 17%, sodium 131, creatinine 1.43, AST 80, and testing positive for influenza type A. CXR showed right lung base hazy opacity that may reflect aspiration, atelectasis, or infection. Pt was treated with acetaminophen, IVF, ceftriaxone, and azithromycin. Pt will be admitted to the hospital for treatment and further evaluation of LESLEE and acute respiratory distress in the setting of influenza infection with superimposed pneumonia with sepsis. Hospital course: patient came with fever, myalgias, productive cough, SOB, and MONDRAGON x5 days patient was admitted for acute respiratory distress secondary to sepsis with pneumonia and influenza a -found to have leukocytosis with bandemia, low-grade fever, lactic acid of 1, tachycardia, chest x-ray showed right right-sided pneumonia, blood cultures sent and subsequently patient was started on IV antibiotics-with above supportive care patient seems to be improved significantly, leukocytosis resolved, blood culture neg @48hrs , po ceftin 500 mg po bid x7 days and azithromycin 500 mg x5 days. repeat chest imaging in 3-4 weeks to see resolution of pneumonia. leslee -improved with iv hydration -improved , encouraged for po intake and hydration. influenza A: complete tamiflu 75 mg po bid for 2 more days. plan: pneumonia -treated with antibiotics , blood culture neg @48hrs , po ceftin 500 mg po bid x7 days and azithromycin 500 mg x5 days. repeat chest imaging in 3-4 weeks to see resolution of pneumonia. leslee -improved with iv hydration -improved , encouraged for po intake and hydration. influenza A: complete tamiflu 75 mg po bid for 2 more days Above management discussed with the patient detail length he understand and in agreement with the above plan, time spent 40 minute. Time Attestation Total time managing care of this patient today: 40 mintues. Discharge Coordination Time (in mins): 40 min Quality: Safe Use of Opioids Does Pt have an Active Cancer Diagnosis on the Problem List?: No Quality: Stroke Does the patient have a stroke diagnosis?: No Physical Exam Vital Signs: Vital Signs: Last Vital Signs Temp 97.6 F 01/21/24 07:35 Pulse 59 01/21/24 07:52 Resp 16 01/21/24 07:52 BP 108/54 L 01/21/24 07:35 Pulse Ox 96 01/21/24 07:35 O2 Del Method Room Air 01/21/24 07:35 O2 Flow Rate 2 01/20/24 07:47 Oxygen Flow Rate 2 01/18/24 23:38 BMI result Body Mass Index 37.6 General: AOx3, sob similar Resp: air entry fair , no rales or wheezing CVS: S1, S2, regular rate, tachycardic GI: +BS, no distention, mild left-sided tenderness Skin: Warm, dry Neuro: nonfocal. Extremities: No edema DS: Data Data Completed and Pending Labs on day of discharge: Laboratory Results - last 24 hr 01/21/24 01/21/24 05:44 07:44 WBC 10.1 RBC 4.47 L Hgb 13.1 L Hct 39.0 L MCV 87.2 MCH 29.3 MCHC 33.6 RDW 12.7 Plt Count 453 H D MPV 10.3 Absolute Nucleated RBC 0.000 Nucleated RBC % (auto) 0.0 Hold Purple Top SEE NOTE Sodium 142 Potassium 4.0 Chloride 106 Carbon Dioxide 26 Anion Gap 14 BUN 20 H Creatinine 0.96 Estim Creat Clear Calc 120.3 Estimated GFR > 60 Random Glucose 94 Calcium 9.9 D Vitamin B12 1517 H Folate 7.2 Preliminary micro results at discharge 01/18/24 21:41 Blood Culture - Preliminary Blood - Venous No growth after 48 hours. 01/18/24 19:52 Blood Culture - Preliminary Blood - Venous No growth after 48 hours. Imaging Chest x-ray: Radiologist's impression: ITS Impressions Chest X-Ray 01/18/24 18:55 IMPRESSION: Right lung base hazy opacity may reflect aspiration, atelectasis, or infection. Electronically signed by: Mavis Basurto MD 01/18/2024 08:07 PM EDT Discharge Plan Discharge Anticipated Discharge Date/Time: 01/21/24 10:03 Patient Disposition: Home, Self-Care Discharge Diagnosis: sepsis sce to pneumonia, influenza A, leslee Referrals: Physician,None [Primary Care Provider] - 1 Week Discharge Medications: New dextromethorphan-guaifenesin 10-100 mg/5 mL Syrup 10 ml PO Q4H PRN (Reason: Cough) Qty: 500 0RF cefuroxime axetil 500 mg tablet 500 mg PO BID Qty: 14 0RF azithromycin 500 mg tablet 500 mg PO DAILY 5 Days Qty: 5 0RF oseltamivir [Tamiflu] 75 mg Capsule 75 mg PO BID Qty: 4 0RF Discharge Orders: Discharge Order (Routine); Ordered 01/21/24 Ordered By: Stephen Hodges Diet: Advance to usual diet Activity on Discharge: As tolerated Stand Alone Forms: Patient Portal Discharge page Print Language: Mongolian Care Plan Goals: pneumonia -treated with antibiotics , blood culture neg @48hrs , po ceftin 500 mg po bid x7 days and azithromycin 500 mg x5 days. repeat chest imaging in 3-4 weeks to see resolution of pneumonia. leslee -improved with iv hydration -improved , encouraged for po intake and hydration. influenza A: complete tamiflu 75 mg po bid for 2 more days Health Concerns: as above. Plan of Treatment: as above. Assessment: as above. Patient Instructions: Pneumonia (DC) Discharge Date/Time: 01/21/24 12:03
--- NOTE | 2024-01-21 10:55 | MHC.CM.PN ---
pt dcd home self care
[2024-01-21 11:10] VITALS: PULSE 70; RESP 14; O2SAT 97
[2024-01-21] MEDS: Azithromycin 500 MG TABLET PO (11:21)
[2024-01-21] MEDS: cefuroxime axetiL 500 MG TABLET PO (11:21)
== END 2024-01-21 12:03 | disposition home or self-care (01) | DRG 720 ==
LOC: HO.ED 22:15 → HO.EDOVER 01-19 00:30 → HO.IMC 01-19 00:53 → HO.S3 01-19 14:06
PROVIDERS: Physician Assistant; Admitting Provider Student in an Organized Health Care Education/Training Program; Emergency Provider Emergency Medicine Emergency Medical Services; Visit Provider Internal Medicine
DX: A41.9 Sepsis, unspecified organism (principal); N17.9 Acute kidney failure, unspecified; J10.00 Influenza due to other identified influenza virus with unspecified type of pneumonia; E87.1 Hypo-osmolality and hyponatremia; R06.03 Acute respiratory distress; F17.210 Nicotine dependence, cigarettes, uncomplicated; Z71.6 Tobacco abuse counseling; Z20.822 Contact with and (suspected) exposure to COVID-19; Z87.74 Personal history of (corrected) congenital malformations of heart and circulatory system; Z79.899 Other long term (current) drug therapy
CPT/HCPCS: 0241U; 36415; 71046; 80048; 80076; 82607; 82746; 83605; 83690; 85007; 85025; 85027; 87040; 94640; 99285; J0456; J0696; J1650; J2919

== ENCOUNTER → 2024-01-19 00:23 | Outpatient (BNV) | payer OTHER, SELFPAY | PROVIDERS: Admitting Provider Student in an Organized Health Care Education/Training Program; Emergency Provider Emergency Medicine Emergency Medical Services; Visit Provider Student in an Organized Health Care Education/Training Program | DX: J10.1 Influenza due to other identified influenza virus with other respiratory manifestations (principal); J18.9 Pneumonia, unspecified organism; N17.9 Acute kidney failure, unspecified; A41.9 Sepsis, unspecified organism | CPT/HCPCS: 99223; 99232; 99239; 99499 ==